=== PATIENT | female | born 1950 | race Hispanic/Latino ===

== ENCOUNTER 2016-04-30 15:20 | Outpatient (CLI) | payer MEDICARE | END 2016-04-30 15:21 | disposition home or self-care (01) | LOC: LABHHL 15:20 | PROVIDERS: ATTEND Surgery | DX: D48.7 Neoplasm of uncertain behavior of other specified sites (principal) | CPT/HCPCS: 88305 ==

== ENCOUNTER 2016-05-24 12:30 | Outpatient (CLI) | payer MEDICARE ==
--- NOTE | 2016-05-25 15:21 | Magnetic Resonance Report ---
BILATERAL BREAST MRI WITHOUT AND WITH CONTRAST: 05/24/16 12:30:00 CLINICAL: History of bilateral breast cancer. Status post right partial mastectomy and more recently status post left partial mastectomy. COMPARISON:02/21/15 MRI and 04/30/16 left mammogram and left breast ultrasound. TECHNIQUE: Axial 1.0-mm T1 without, axial high resolution 2.0-mm T2 and axial 1.0-mm dynamic Vibrant high-resolution postcontrast T1 fat saturation sequences on a 1.5 Lena magnet. The examination was performed with an 8 channel dedicated [place] breast coil. Post processing with CAD and subtraction was performed on an [employer] workstation. 15.0 cc of Multihance was injected without incident for the contrast portion of the exam. Consent was obtained prior to the administration of the contrast. FINDINGS: Right: Minimal background parenchymal enhancement. No mass or suspicious enhancement. No enhancing central scar. No suspicious lymph nodes. Left: The left breast is larger than the right. A central retroareolar seroma measures 4.9 x 2.4 x 3.3 cm. The skin is thickened and there is pronounced suspicious enhancement of the skin of the upper inner quadrant. The nipple is retracted and there is focal suspicious enhancement deep to the nipple. No other mass or suspicious enhancement of the left breast. No suspicious lymph nodes. IMPRESSION: 1. Enhancement of the thickened scan of the upper inner quadrant of the left breast is highly suspicious for skin recurrence. Consider skin punch biopsy of the left breast. 2. Negative right breast. 3. No suspicious lymph nodes. 4. A benign 5 cm left central seroma. RIGHT BI-RADS 2 -- Benign LEFT BI-RADS 5 -- Highly Suspicious for Malignancy.
== END 2016-05-24 12:31 | disposition home or self-care (01) ==
LOC: SPVIMAG 12:30
PROVIDERS: ATTEND Surgery
DX: N64.53 Retraction of nipple (principal); N64.89 Other specified disorders of breast; Z85.3 Personal history of malignant neoplasm of breast; Z90.13 Acquired absence of bilateral breasts and nipples
CPT/HCPCS: 0159T; A9577; C8908; 77059